=== PATIENT | male | born 1945 | race Caucasian/White ===

== ENCOUNTER → 2016-11-24 | Outpatient (CLI) | payer BC ==
[~2016-11-24] MED LIST: ASPI81TA28 PO; CHOLCAP5 PO; CYAN100020 PO; DUTA0.5C PO; HYDR-5688 PO; LISI20TA55 PO; NAPR1TAB9 PO; SIMV20TA2 PO; TAMS0.4C59 PO; [UNRECOGNIZED DRUG - OTHER] PO
--- NOTE | 2016-11-24 08:02 | DIAGNOSTIC IMAGING REPORT ---
TESTICULAR ULTRASOUND CLINICAL HISTORY: N50.89 Testicular swellingNO LATEX [id number] COMPARISON STUDY: No previous studies for comparison. FINDINGS: The right testis measures 46 x 20 x 30 mm. The left testis measures 47 x 24 x 35 mm. No intratesticular masses are visualized. There is no evidence of testicular torsion. There are small bilateral hydroceles. There are bilateral varicoceles. There is a large reducible fat-containing left inguinal hernia. IMPRESSION: 1. Fat-containing reducible left inguinal hernia 2. No evidence of intratesticular mass. No evidence of testicular torsion 3. Bilateral varicoceles 4. Small bilateral hydroceles Electronically signed by: Calos Gramajo M.D. 11/24/2016 8:00 AM Dictated Date/Time: 11/24/2016 7:58 AM
== END | disposition home or self-care (01) ==
LOC: C.ULTR 07:33
PROVIDERS: ATTEND Urology
DX: N50.89 Other specified disorders of the male genital organs (principal); K40.90 Unilateral inguinal hernia, without obstruction or gangrene, not specified as recurrent; I86.1 Scrotal varices

== ENCOUNTER → 2016-12-23 | Outpatient (CLI) | payer BC ==
[~2016-12-23] MED LIST changes: +OPTIRAY 320 IV PRN
--- NOTE | 2016-12-23 10:06 | DIAGNOSTIC IMAGING REPORT ---
CT ABD/PELVIS IV CONTRAST ONLY CLINICAL HISTORY: Hernia. Varicocele. COMPARISON STUDY: PET/CT dated 01/06/2011 TECHNIQUE: Following the IV administration of 93 mL of Optiray-320, CT scan of the abdomen and pelvis was performed from the lung bases to the proximal femurs. Images are reviewed in the axial, sagittal, and coronal planes. IV contrast was administered without complication. CT DOSE: 420.73 mGy.cm FINDINGS: Lower chest: There are mild basilar atelectatic changes present. Liver: There is a 19 mm hypodensity within the right lobe of the liver, likely representing a cyst. This is slightly larger than on the prior PET/CT scan dated 01/06/2011. There is no ductal dilatation. The portal vein appears patent. Gallbladder: Cholelithiasis Spleen: Normal in size and attenuation. Pancreas: Unremarkable. Adrenal glands: Unremarkable. Kidneys: There is an enlarging 23 mm exophytic mass arising from the upper pole the left kidney. This exceeds water attenuation and is indeterminate. A dedicated renal CT scan is recommended in follow-up. There is no hydronephrosis. Bowel: There are no transition zones to indicate bowel obstruction. By history the appendix is absent. There is no acute diverticulitis. There are scattered colonic diverticula present. Peritoneum: There is no intraperitoneal free air or abdominal ascites. There is small fat-containing umbilical hernia. There is a large fat-containing left inguinal hernia. Vasculature: The abdominal aorta is normal in course and caliber. Adenopathy: None. Pelvic viscera: The bladder, and pelvic viscera are unremarkable. Skeletal structures: There is bilateral L5 spondylolysis. There is a grade 1-2 spondylolisthesis of L5 and S1. IMPRESSION: 1. Large fat-containing left inguinal hernia extending into the superior aspect of the scrotal sac 2. Small fat-containing umbilical hernia 3. No evidence of bowel obstruction. No evidence of free air 4. Enlarging 23 mm exophytic mass arising from the upper pole the left kidney. This is indeterminate as it exceeds water attenuation. A dedicated renal CT scan is recommended in follow-up. Electronically signed by: Calos Gramajo M.D. 12/23/2016 10:04 AM Dictated Date/Time: 12/23/2016 9:58 AM
== END | disposition home or self-care (01) ==
LOC: C.CTS 08:55
PROVIDERS: ATTEND Nurse Practitioner Adult Health
DX: I86.1 Scrotal varices (principal); K40.90 Unilateral inguinal hernia, without obstruction or gangrene, not specified as recurrent; K42.9 Umbilical hernia without obstruction or gangrene; N28.89 Other specified disorders of kidney and ureter

== ENCOUNTER → 2016-12-31 | Outpatient (CLI) | payer BC ==
[~2016-12-31] MED LIST changes: +GADAVIST IV PRN; -OPTIRAY 320 IV PRN
--- NOTE | 2016-12-31 14:56 | DIAGNOSTIC IMAGING REPORT ---
MRI OF THE ABDOMEN WITH AND WITHOUT CONTRAST RENAL PROTOCOL CLINICAL HISTORY: Left kidney mass. COMPARISON STUDY: CT of the abdomen and pelvis December 23, 2010 and December 23, 2016. TECHNIQUE: Utilizing a 1.5 Norma magnet and dedicated coil, multiplanar, multiecho imaging of the abdomen was performed pre and postcontrast administration. Injection of 7 cc of Gadavist IV was uneventful. FINDINGS: Note is made of a T2 hyperintense right hepatic lobe lesion which is consistent with a cyst. Liver morphology is normal. The spleen, adrenal glands and pancreas are normal. The right kidney is unremarkable. Note is made of a 2.2 cm lesion arising from the upper pole of the left kidney which is inherently T1 hyperintense. This demonstrates no enhancement. This is consistent with a hyperdense/proteinaceous cyst. No solid renal lesions are present. There is no hydronephrosis. No abdominal lymphadenopathy or ascites is present. There is a splenule. IMPRESSION: 2.2 cm lesion arising from the upper pole of the left kidney which reflects a complex/proteinaceous cyst and is benign. No solid renal lesion. Electronically signed by: Tobi Cochran M.D. 12/31/2016 2:54 PM Dictated Date/Time: 12/31/2016 9:58 AM
== END | disposition home or self-care (01) ==
LOC: C.MRI 08:03
PROVIDERS: ATTEND Urology
DX: N28.89 Other specified disorders of kidney and ureter (principal)

== ENCOUNTER 2017-01-29 05:08 | Day surgery (SDC) | payer BC ==
[2017-01-14 08:04] VITALS: BMI 25.0
--- NOTE | 2017-01-14 08:42 | PAT Medication Instructions ---
Service Date Jan 14, 2017. Current Home Medication List Aspirin (Aspirin Ec), 81 MG PO OFF FOR COUPLE WEEKS Cholecalciferol (Vitamin D3), 5,000 INTER.UNIT PO QAM Cyanocobalamin (Vitamin B12), 1,000 MCG PO QAM Dutasteride (Avodart), 0.5 MG PO QAM Lisinopril/Hctz (Prinzide 20-25MG), 1 TAB PO QAM Naproxen (Aleve), 220 MG PO BID PRN for Pain Simvastatin (Zocor), 20 MG PO QPM Tamsulosin Hcl (Flomax), 0.4 MG PO BID [Acaiberry], 1 DOSE PO QAM Medication Instructions For Your Scheduled Surgery - Check with surgeon/family doctor for instructions: Aspirin (Aspirin Ec), 81 MG PO QAM - Check with surgeon for instructions: Naproxen (Aleve), 220 MG PO BID PRN for Pain - Hold the following medications starting 01/15/17: [Acaiberry], 1 DOSE PO QAM - Hold the following medications the morning of surgery: Tamsulosin Hcl (Flomax), 0.4 MG PO BID Lisinopril/Hctz (Prinzide 20-25MG), 1 TAB PO QAM Dutasteride (Avodart), 0.5 MG PO QAM Cyanocobalamin (Vitamin B12), 1,000 MCG PO QAM Cholecalciferol (Vitamin D3), 5,000 INTER.UNIT PO QAM - Take the following medications as scheduled the night before surgery: Simvastatin (Zocor), 20 MG PO QPM Tamsulosin Hcl (Flomax), 0.4 MG PO BID If you have any questions please call us at [phone] (Gretchen Matthews PA-C) or [phone] or [phone]
[2017-01-14 09:52] LABS: HEMATOCRIT 47.6 % (42-52); MEAN CORPUSCULAR HEMOGLOBIN 31.9 pg (25-34); MEAN CORPUSCULAR HGB CONC 35.1 g/dl (32-36); MEAN PLATELET VOLUME 10.5 fL (7.4-10.4); PLATELET COUNT 213 K/uL (130-400); RED BLOOD COUNT 5.23 M/uL (4.7-6.1); WHITE BLOOD COUNT 15.97 K/uL (4.8-10.8)
[2017-01-14 10:31] LABS: BUN/CREATININE RATIO 19.3 (10-20); CREATININE 0.88 mg/dl (0.60-1.40); POTASSIUM 3.7 mmol/L (3.5-5.1)
[2017-01-14 10:53] LABS: BASO % 0.2 %; BASO ABS # 0.03 K/uL (0-0.2); COMPLETE YES; EOS % 1.1 %; IG% 0.1 %; LYMPH % 66.8 %; LYMPH ABS # 10.66 K/uL (1.2-3.4); MONO % 4.3 %; NEUT % 27.5 %
[~2017-01-29] VITALS: Ht 175.3 cm; Wt 79.3 kg
[~2017-01-29 05:08] MED LIST changes: -GADAVIST IV PRN; -HYDR-5688 PO
[2017-01-29 05:29] VITALS: BP 159/76; TEMP 36.7; O2SAT 97; Ht 175.3 cm; Wt 79.3 kg
[2017-01-29] MEDS ORDERED: LACTATED RINGER'S 1000ML 1,000 ML IV SCH ×2 (06:00)
[2017-01-29] MEDS ORDERED: CLINDAMYCIN 600 MG/54 ML D5W IV SCH (06:00)
[2017-01-29] MEDS ORDERED: HEPARIN SOD 5000 UNIT/0.5 ML CARP SQ SCH (06:00)
[2017-01-29] MEDS ORDERED: ONDANSETRON INJ 2 MG/ML 2 ML VIAL ONE (06:33)
[2017-01-29] MEDS ORDERED: NEOSTIGMINE METHYLSULFATE 5 MG/5 ML SYR ONE (06:33)
[2017-01-29] MEDS ORDERED: GLYCOPYRROLATE INJ 0.2 MG/ML VIAL ONE (06:33)
[2017-01-29] MEDS ORDERED: PROPOFOL IV EMULSION 10 MG/ML 20 ML VIAL IV ONE (06:33)
[2017-01-29] MEDS ORDERED: ROCURONIUM BROMIDE 10 MG/ML 5 ML VIAL ONE (06:33)
[2017-01-29] MEDS ORDERED: MIDAZOLAM HCL 1 MG/ML 2ML VIAL ONE (06:33)
[2017-01-29] MEDS ORDERED: DEXAMETHASONE SOD INJ 4 MG/ML VIAL ONE (06:33)
[2017-01-29] MEDS ORDERED: LIDOCAINE HCL 2% 2 ML VIAL (20MG/ML) ONE (06:33)
[2017-01-29] MEDS ORDERED: FENTANYL CITRATE INJ 50 MCG/1 ML 2 ML VIAL ONE (06:33)
[2017-01-29] MEDS ORDERED: BUPIVACAINE/EPINEPHRINE 0.5% MPF 1:200,000 30 ML VIAL ONE (06:43)
--- NOTE | 2017-01-29 06:53 | History & Physical Bridge Note ---
H&P Re-Evaluation Bridge Note: I have examined the patient, reviewed the History & Physical and in the interval since the performance of the History & Physical I have noted the following changes of clinical significance: No changes noted
[2017-01-29] MEDS ORDERED: HYDR-5688 PO (06:55)
--- NOTE | 2017-01-29 06:58 | Discharge Instructions ---
Discharge Instructions Date of Service January 29, 2017. Admission Reason for Admission: Left Inguinal Hernia, Umbilical Hernia Discharge Discharge Diagnosis / Problem: Left Inguinal Hernia, Umbilical Hernia Discharge Goals Goal(s): Decrease discomfort, Improve function Activity Recommendations Activity Limitations: as noted below Lifting Limitations: no more than 10 pounds Exercise/Sports Limitations: until after follow-up appointment May Resume Sexual Activity: after follow-up appointment Shower/Bathe: tomorrow . Instructions / Follow-Up Instructions / Follow-Up Please follow-up with Dr. Goodman in the office in 1-2 weeks. Please call the office at [phone] with any questions or concerns. Current Hospital Diet Patient's current hospital diet: Discharge Diet Recommended Diet: Regular Diet Pending Studies Studies pending at discharge: no Medical Emergencies . Who to Call and When: Medical Emergencies: If at any time you feel your situation is an emergency, please call 911 immediately. . Non-Emergent Contact Non-Emergency issues call your: Primary Care Provider, Surgeon Call Non-Emergent contact if: temperature is above 101.5, your pain is not controlled, wound has increased drainage, wound has increased redness . "Provider Documentation" section prepared by Krissy Lezama. . VTE Core Measure Inpt VTE Proph given/why not?: Unfractionated heparin SQ, SCD's [place] Drug Monitoring Program Search Results: patient reviewed within database, no issues identified
[2017-01-29] MEDS ORDERED: PHENYLEPHRINE 100MCG/ML 5ML SYR ONE (07:35)
[2017-01-29] MEDS ORDERED: EpHEDrine SULFATE 50MG/5ML SYR ONE (07:35)
[2017-01-29] MEDS ORDERED: SODIUM CHLORIDE 0.9% 1000ML 1,000 ML IV SCH (08:39)
[2017-01-29] MEDS ORDERED: HYDROCODONE/ACETAMOPHEN 5/325MG TAB PO PRN ×2 (08:45)
[2017-01-29] MEDS ORDERED: ONDANSETRON INJ 2 MG/ML 2 ML VIAL IV PRN ×2 (08:45→09:00)
--- NOTE | 2017-01-29 08:51 | [facility] Operative Report ---
Operative Report Operative Date January 29, 2017. Pre-Operative Diagnosis Umbilical and left inguinal hernia Post-Operative Diagnosis 1. direct and indirect left inguinal hernia; umbilical hernia; cord lipoma Procedure(s) Performed 1. open LIH repair with mesh 2. umbilical hernia repair 3. excision of cord lipoma Surgeon Dr Goodman Back Wedger Surgeon(s) Krissy Lezama PA-C Estimated Blood Loss 20ML Findings 1. large indirect LIH 2. moderate sized direct LIH 3. small umbilical hernia 4. moderate sized cord lipoma Specimens NONE Anesthesia LMA Complication(s) None Disposition Recovery Room / PACU I attest to the content of the Intraoperative Record and any orders documented therein. Any exceptions are noted below.
[2017-01-29] MEDS ORDERED: LABETALOL HCL IV 5 MG/ML 20ML IV PRN (09:00)
[2017-01-29] MEDS ORDERED: HYDROmorphone INJ 1 MG/ML SYR IV PRN (09:00)
[2017-01-29] MEDS ORDERED: FENTANYL CITRATE INJ 50 MCG/1 ML 2 ML VIAL IV PRN (09:00)
[2017-01-29] MEDS ORDERED: MEPERIDINE HCL 25 MG/ML CARP IV PRN (09:00)
[2017-01-29] MEDS ORDERED: EpHEDrine SULFATE INJ 50 MG/ML AMP IV PRN (09:00)
[2017-01-29] MEDS ORDERED: ATROPINE SULFATE 0.1 MG/ML 5ML SYR IV PRN (09:00)
--- NOTE | 2017-01-29 09:15 | OPERATIVE REPORT ---
DATE OF OPERATION: 01/29/2017 PREOPERATIVE DIAGNOSES: 1. Left inguinal hernia. 2. Umbilical hernia. POSTOPERATIVE DIAGNOSES: 1. Large indirect left inguinal hernia. 2. Moderate direct left inguinal hernia. 3. Small umbilical hernia. 4. Moderate size cord lipoma. PROCEDURES: 1. Open left inguinal hernia repair with mesh. 2. Umbilical hernia repair without mesh. 3. Excision of cord lipoma. SURGEON: Dr. Goodman. RANGE AIDE: Krissy Lezama PA-C. ESTIMATED BLOOD LOSS: Approximately 20 mL COMPLICATION: No immediate. ANESTHESIA: General with laryngeal mask airway. DESCRIPTION OF PROCEDURE: After informed consent was obtained, the patient taken to the operating suite and placed in supine position. After successful intubation, the abdomen and groin were shaved and sterilely prepped and draped in usual fashion. We began with the umbilical hernia. I made a small curvilinear infraumbilical incision with a 15 blade scalpel and carried it down through the soft tissue using electrocautery. Once we were down to the fascia, we were able to palpate a small, approximately 1 cm defect. I used a Radha clamp to come around the superior aspect of the umbilicus and took down the umbilical stalk using electrocautery. This allowed me to free up the edges around the defect. Because of its small size, I opted not to use mesh. I used 0 Ethibond in interrupted [id number] fashion to primarily close the small defect. After I did this, I thoroughly irrigated the wound. I reattached the umbilical stalk using 0 Vicryl in an interrupted fashion. Soft tissue was closed using 3-0 Vicryl and skin was closed using 4-0 Monocryl. Dermabond glue was used as a dressing. Marcaine was injected around the area for postoperative analgesia. Our attention then turned to the left inguinal hernia. A new scalpel was used to make an inguinal incision and this was carried down through the soft tissue using electrocautery. The external oblique aponeurosis was skeletonized. A new blade was used to make a small incision and Metzenbaum scissors was used to extend this incision distally down to the external ring as well as for several centimeters proximally. Once in the inguinal canal, we were able to grab the cord and cord structures and gently tease them off the pubic bone using blunt finger dissection. A Werner drain was placed around it to help with exposure. When we did this, we immediately noted a moderate-sized direct defect which was easily reducible. As we began to inspect the cord and cord structures, we noted a moderate size cord lipoma which we easily took down using electrocautery and then clamped the base, cut it, and tied it using 3-0 Vicryl. We were then able to find the cord and cord structures as well as a very large indirect hernia sac. We were able to tease this down to the neck of the hernia sac and then easily dunk this back into the abdominal cavity without any difficulty. We then used a piece of polypropylene rios holed mesh as an onlay. We secured it distally to Warren's ligament, laterally along the shelving portion of Poupart's ligament, and medially along the midline musculature. The "arms" of the mesh were wrapped around behind the cord and cord structures, secured to underlying muscle. The sutures were all 0 Ethibond in interrupted fashion. The mesh laid nice and tension free without impinging on the cord. We thoroughly irrigated the wound, there was adequate hemostasis. We did inject the periphery of the mesh with some Marcaine for postoperative analgesia. Final irrigation was performed. We then closed the external oblique aponeurosis with 2-0 Vicryl in a running fashion. Soft tissue was irrigated and closed using 3-0 Vicryl and 4-0 Monocryl for the skin. Some Marcaine was also injected around the skin. Dermabond glue was used as a dressing. The patient was awakened, extubated, and transferred to recovery in stable condition. I attest to the content of the Intraoperative Record and any orders documented therein. Any exceptio ns are noted below.
--- NOTE | 2017-01-29 09:18 | Anesthesiology Progress Note ---
Anesthesia Post Op Note Date & Time January 29, 2017 at 09:19 Vital Signs Pain Intensity: 0 Vital Signs Past 12 Hours Date Time Temp Pulse Resp B/P Pulse Ox O2 Delivery O2 Flow Rate FiO2 01/29/17 09:10 36.8 125/63 01/29/17 09:08 67 12 01/29/17 09:08 67 12 95 01/29/17 09:05 126/64 01/29/17 09:03 72 16 01/29/17 09:03 73 16 96 01/29/17 09:00 115/63 01/29/17 08:58 70 14 93 01/29/17 08:58 69 14 01/29/17 08:55 112/67 01/29/17 08:53 75 20 01/29/17 08:53 76 20 99 01/29/17 08:52 77 13 01/29/17 08:52 77 13 99 01/29/17 08:50 115/61 01/29/17 08:50 Room Air 01/29/17 08:47 76 14 99 01/29/17 08:47 75 14 01/29/17 08:45 123/64 01/29/17 08:42 81 15 98 01/29/17 08:42 82 15 01/29/17 08:37 36.5 82 14 130/63 98 Mask 10 01/29/17 05:29 36.7 18 159/76 97 Room Air Notes Mental Status: alert / awake / arousable, participated in evaluation Pt Amnestic to Procedure: Yes Nausea / Vomiting: adequately controlled Pain: adequately controlled Airway Patency, RR, SpO2: stable & adequate BP & HR: stable & adequate Hydration State: stable & adequate Anesthetic Complications: no major complications apparent
[2017-01-29 09:35] VITALS: BP 126/62; PULSE 69; TEMP 36.6; O2SAT 95
[2017-01-29 10:05] VITALS: BP 138/66; PULSE 75; TEMP 36.6; O2SAT 95
[2017-01-29 10:35] VITALS: BP 135/66; PULSE 74; TEMP 36.5; O2SAT 95
== END 2017-01-29 10:55 | disposition home or self-care (01) ==
LOC: C.ACU 05:08
PROVIDERS: ATTEND Surgery
DX: K40.90 Unilateral inguinal hernia, without obstruction or gangrene, not specified as recurrent (principal); K42.9 Umbilical hernia without obstruction or gangrene; N40.1 Benign prostatic hyperplasia with lower urinary tract symptoms; N13.8 Other obstructive and reflux uropathy; C91.10 Chronic lymphocytic leukemia of B-cell type not having achieved remission; I10 Essential (primary) hypertension; Z79.82 Long term (current) use of aspirin; Z79.899 Other long term (current) drug therapy

== ENCOUNTER 2020-09-16 10:59 | Inpatient (IN) ==
--- NOTE | 2020-09-16 11:19 | Emergency Department Note ---
Impression & Plan Acute cholecystitis, Cholelithiasis, CLL (chronic lymphocytic leukemia), Dehydration ED Provider Note NAME: TRISTEN JORGENSEN AGE: 75 SEX: M ARRIVES VIA: Walk-In INFORMANT: Patient, ED PROVIDER(S): Jacinto Arnold MD CHIEF COMPLAINT: Abdominal pain PLAN: Disposition: Admit MEDICAL DECISION MAKING: The patient is a pleasant 75-year-old gentleman with a past medical history of CLL and HTN who presents emergency department with several days of right upper abdominal pain that waxes and wanes which he thought was related to his history of reflux but denies any improvement with his Pepcid Complete or Tums. He denies any bloody or black stools or diarrhea. He reports he did have to have a straining bowel movement yesterday and has yet to move his bowels today which he does daily. He denies any fevers, chills, cough, congestion, known COVID-19 exposures. On arrival the patient is in no acute distress, afebrile with stable vital s igns. He appears clinically dry. He has mild right-sided abdominal tenderness without guarding or rebound. Equivocal Jay sign. EKG without overt acute ischemia. Chest x-ray negative for acute c ardiopulmonary process. BBC 17 K, nonspecific. H/H and platelets within normal limits. Chemistry without metabolic acidosis. BUN 19 consistent with the patient's clinically dry appearance. Lactate 1.5, within normal limits. Electrolytes unremarkable. Total bilirubin 1.4 with direct bilirubin 0.3. AST ALT and alk phos within normal limits. Troponin negative. Lipase within normal limits. COVID-19 RNA, NAAT test negative. CT abd/pelvis performed and demonstrates findings c/w cholecystitis with cholelithiasis with gallbladder wall thickening/pericholecystic fluid as well minimal pericholecystic edema. Patient was re-evaluated while he did feel improved after IVF hydration, Famotidine, apap and Compazine - Jay's sign now more clearly present. Patient ordered for Cefoxitin (Zosyn deferred as patient has pcn allergy). Case d/w Dr. Quintanilla, general surgery on-call, who will admit the patient for further management/surgery. Patient was updated and he agrees with plan for admission. Triage Nursing notes reviewed and agree them. Prior medical records reviewed Vital Signs: reviewed and remarkable for no significant abnormalities Differential diagnosis: Appendicitis, testicular torsion, infections, diverticulitis, UTI, obstruction, mesenteric ischemia, aortic pathology, inflammatory bowel disease, renal colic, PUD, pancreatitis, biliary pathology, hernia, volvulus, constipation, as well as other pathologies. ER treatment provided: See below. Diagnostics interpreted by me: ECG: Normal sinus rhythm, 61 bpm, no ectopy, no overt ST elevation or depression, QTC 408, QRS 96. Cardiac Monitoring: An order for continuous cardiac monitoring was placed and demonstrated normal sinus rhythm, 61 bpm, no ectopy. Laboratory studies: See below Imaging studies: XR chest 1V portable CLINICAL HISTORY: Atypical chest pain COMPARISON STUDY: 07/20/2015 FINDINGS: The heart is enlarged. There is aortic tortuosity/ectasia. There are low lung volumes with bibasilar opacities, while likely related to a hypoventilatory study, an infectious/inflammatory processes could appear similar. There is mild central vascular prominence without evidence of overt f ailure IMPRESSION: 1. Cardiomegaly 2. Low lung volumes with hypoventilatory changes at the lung bases. CT abd pelvis IV con only CLINICAL HISTORY: Right sided abd pain COMPARISON STUDY: CT scan dated 12/23/2016 TECHNIQUE: A dose lowering technique was utilized adhering to the principles of ALARA. CT DOSE: 456.85 mGy.cm FINDINGS: Lower chest: There is lower lobe bronchial wall thickening. There are bibasilar opacities, atelectatic versus infectious/inflammatory. The heart is enlarged with coronary artery calcifications Liver: There is trace perihepatic fluid. There is a 28 mm right hepatic lobe cyst. Gallbladder: Cholelithiasis. There is gallbladder wall thickening/pericholecystic edema. The findings may indicate acute cholecystitis. Clinical correlation is advocated. Spleen: Mildly enlarged measuring 13 cm. There is a subtle nonspecific 5 mm hypodensity within the inferior aspect of the spleen. Pancreas: Unremarkable. Adrenal glands: Unremarkable. Kidneys: There is a 28 mm exophytic left renal cyst. This slightly exceeds water attenuation. Prior workup indicated a complex proteinaceous cyst. Bowel: There are no transition zones to indicate bowel obstruction. By history the appendix is surgically absent. There is colonic diverticulosis. There is no evidence of acute diverticulitis. Peritoneum: There is no intraperitoneal free air or abdominal ascites. Vasculature: The abdominal aorta is normal in course and caliber. Adenopathy: None. Pelvic viscera: There is mild prostatomegaly Skeletal structures: There is bilateral L5 spondylolysis. Is a grade 2 spondyl olisthesis of L5 and S1. IMPRESSION: 1. No evidence of bowel obstruction. No evidence of free air 2. Bibasilar opacities, atelectatic versus infectious/inflammatory 3. Cholelithiasis with gallbladder wall thickening/pericholecystic fluid. There is minimal pericholecystic edema. Given the history of right-sided pain, the findings are suspicious for acute cholecystitis. 4. Trace perihepatic fluid. ACT 112: Negative or not required by law. Electronically signed by: Calos Gramajo M.D. 09/16/2020 12:59 PM Consultation(s): Dr. Quintanilla, General surgery. HPI: The patient is a pleasant 75-year-old gentleman with a past medical history of CLL and HTN who presents emergency department with several days of right upper abdominal pain that waxes and wanes which he thought was related to his history of reflux but denies any improvement with his Pepcid Complete or Tums. He denies any bloody or black stools or diarrhea. He reports he did have to have a straining bowel movement yesterday and has yet to move his bowels today which he does daily. He denies any fevers, chills, cough, congestion, known COVID-19 exposures. ROS: See above HPI for pertinent positives & negatives. A total of 10 systems reviewed and were otherwise negative. PAST MEDICAL HISTORY:See Below PAST SURGICAL HISTORY:See Below FAMILY HISTORY:See Below SOCIAL HISTORY:See Below HOME MEDICATIONS:See Below ALLERGIES:See Below VITALS:See Below PHYSICAL EXAMINATION: GENERAL: Awake, alert, uncomfortable-appearing, in no distress HENT: Normocephalic, atraumatic. Oropharynx with dry mucous membranes and otherwise unremarkable. EYES: Normal conjunctiva. Sclera non-icteric. NECK: Supple. No nuchal rigidity. FROM. No JVD. RESPIRATORY: Clear to auscultation. CARDIAC: Regular rate, normal rhythm. Extremities warm and well perfused. Pulses equal. ABDOMEN: Soft, non-distended. Mild right sided abdominal tenderness to palpation . Positive jay's sign. No masses. RECTAL: Deferred. MUSCULOSKELETAL: Chest examination reveals no tenderness. The back is symmetrical on inspection without obvious abnormality. There is no CVA tend erness to palpation. No joint edema. LOWER EXTREMITIES: Calves are equal size bilaterally and non-tender. No edema. No discoloration. NEURO: Normal sensorium. No sensory or motor deficits noted. SKIN: No rash or jaundice noted. Jacinto Arnold MD Past Med/Surg History Medical History Acid reflux CLL (chronic lymphocytic leukemia) DX 30 YR AGO/ANNUAL VISITS DR MALAVE /NO HX TREATMENT Enlarged prostate High cholesterol History of stroke ? HX OF MINI STROKE >10 YR AGO - SCAN SHOWED "SHADOW" - AFFECTED SPEECH/RESOLVED- NO PROBLEMS SINCE HTN (hypertension) Surgical History H/O Achilles tendon repair H/O hernia repair MULTIPLE History of appendectomy History of carpal tunnel release LEFT History of colonoscopy History of left cataract surgery 05/14/2020. 2mg versed no issues. History of removal of cyst PAROTID Family History Father Family history of cancer Other Heart disease Social History Smoking Status: Never smoker Second Hand Exposure: No; Hx Alcohol Use: Yes Hx Substance Use: No Preferred Language: Senegalese Communication Ability: Effective Cemetery Counselor Required: No Beliefs That Will Affect Care: None Current Living Situation: Spouse current occupational status: retired Other Information That Helps Us Care for You: No Feels Safe at Home: Yes Assistive Devices: None Allergies Allergies Allergy/AdvReac Type Severity Reaction Status Date / Time diphenhydramine Allergy Mild RED AND Verified 09/16/20 12:06 SORE RASH WHEN USED THIS CREAM FOR POISION DEAN benzocaine Allergy Unknown RASH Verified 09/16/20 12:06 Penicillins Allergy Unknown REMOTE HX, Verified 09/16/20 12:06 REACTION UNSURE Sulfa (Sulfonamide Allergy Unknown REMOTE HX, Verified 09/16/20 12:06 Antibiotics) REACTION UNSURE Home Meds Home Medications Medication Instructions Recorded Confirmed cholecalciferol (vitamin D3) 125 50 mcg PO QAM 07/20/19 09/16/20 mcg (5,000 unit) capsule lisinopril 20 1 tab PO QAM 07/20/19 09/16/20 mg-hydrochlorothiazide 25 mg tablet mecobalamin (vitamin B12) 1,000 5,000 mcg SUBLINGUAL QAM 07/20/19 09/16/20 mcg disintegrating tablet,sublingual simvastatin 20 mg tablet 20 mg PO HS 07/20/19 09/16/20 Pepcid Complete 1 tab PO UD PRN 05/04/20 09/16/20 dutasteride 0.5 mg PO QAM 05/04/20 09/16/20 ibuprofen 200 mg PO BID PRN 05/04/20 09/16/20 tamsulosin 0.4 mg PO HS 05/04/20 09/16/20 Results & Data (ED) Vital Signs Vital Signs - 24 hr 09/16/20 11:00 09/16/20 11:20 09/16/20 11:24 Temperature 37.1 C Temperature Source Oral Pulse Rate 71 63 Pulse Rate [Apical] 61 Pulse Rate from SpO2 Sensor 63 Pulse Rhythm [Apical] Regular Respiratory Rate 17 16 31 H Respiratory Effort / Characteristics Non-Labored Non-Labored Respiratory Depth Normal Normal Respiratory Pattern Regular Regular Blood Pressure 131/70 126/71 Blood Pressure [Left Arm] 126/71 Blood Pressure Mean 90 94 Blood Pressure Mean [Left Arm] 89 Blood Pressure Position [Left Arm] Lying Pulse Oximetry 94 96 95 Oxygen Delivery Method Room Air Room Air Sepsis Recent Fever Within 48 Hours No Sepsis New/Unexplained Change in Mental Status No Sepsis Action Taken by Nursing No Action Required 09/16/20 11:29 09/16/20 11:30 09/16/20 12:00 Temperature Temperature Source Pulse Rate 62 74 Pulse Rate [Apical] Pulse Rate from SpO2 Sensor 62 71 Pulse Rhythm [Apical] Respiratory Rate 22 31 H Respiratory Effort / Characteristics Respiratory Depth Respiratory Pattern Blood Pressure 132/71 162/83 H Blood Pressure [Left Arm] Blood Pressure Mean 95 113 Blood Pressure Mean [Left Arm] Blood Pressure Position [Left Arm] Pulse Oximetry 95 94 93 Oxygen Delivery Method Room Air Sepsis Recent Fever Within 48 Hours Sepsis New/Unexplained Change in Mental Status Sepsis Action Taken by Nursing 09/16/20 12:40 09/16/20 13:00 Temperature Temperature Source Pulse Rate 84 68 Pulse Rate [Apical] Pulse Rate from SpO2 Sensor 84 69 Pulse Rhythm [Apical] Respiratory Rate 27 H 26 H Respiratory Effort / Characteristics Respiratory Depth Respiratory Pattern Blood Pressure 142/82 H 133/69 Blood Pressure [Left Arm] Blood Pressure Mean 95 100 Blood Pressure Mean [Left Arm] Blood Pressure Position [Left Arm] Pulse Oximetry 94 92 Oxygen Delivery Method Sepsis Recent Fever Within 48 Hours Sepsis New/Unexplained Change in Mental Status Sepsis Action Taken by Nursing Laboratory Data Attestation: I reviewed the patient's lab results. Result diagrams: 09/16/20 11:15 09/16/20 11:51 Lab Results 09/16/20 09/16/20 09/16/20 Range/Units 11:15 11:15 11:15 WBC 17.13 H (4.8-10.8) K/uL RBC 5.54 (4.7-6.1) M/uL Hgb 16.6 (14.0-18.0) g/dL Hct 49.7 (42-52) % MCV 89.7 (80-100) fL MCH 30.0 (25-34) pg MCHC 33.4 (32-36) g/dL RDW Std Deviation 45.9 (36.4-46.3) fL RDW Coeff of Singh 13.9 (11.5-14.5) % Plt Count 222 (130-400) K/uL MPV 10.3 (7.4-10.4) fL Immature Gran % (Auto) 0.2 % Neut % (Auto) 64.0 % Lymph % (Auto) 27.8 % [place] % (Auto) 7.5 % Eos % (Auto) 0.3 % Baso % (Auto) 0.2 % Neut # (Auto) 10.97 H (1.4-6.5) K/uL Lymph # (Auto) 4.76 H (1.2-3.4) K/uL [place] # (Auto) 1.28 H (0.11-0.59) K/uL Eos # (Auto) 0.05 (0-0.5) K/uL Baso # (Auto) 0.03 (0-0.2) K/uL Immature Gran # (Auto) 0.04 H (0.00-0.02) K/uL PT Cancelled INR Cancelled APTT Cancelled PTT Ratio Cancelled Sodium 138 (136-145) mmol/L Potassium (3.5-5.1) mmol/L Chloride 102 (98-107) mmol/L Carbon Dioxide 30 (21-32) mmol/L Anion Gap 6.0 (3-11) BUN 19 H (7-18) mg/dl Creatinine 0.89 (0.6-1.4) mg/dl Est Cr Clr Drug Dosing 71.7 ml/min Est GFR ( Amer) 96.9 Est GFR (Non-Af Amer) 83.6 BUN/Creatinine Ratio 21.5 H (10-20) Glucose 135 H (70-99) mg/dl Calcium 9.4 (8.5-10.1) mg/dl Phosphorus 3.3 (2.5-4.9) mg/dl Magnesium (1.8-2.4) mg/dl Total Bilirubin 1.4 H (0.2-1) mg/dl Direct Bilirubin (0-0.2) mg/dl AST (15-37) U/L ALT 24 (12-78) U/L Alkaline Phosphatase 78 (45-117) U/L Troponin I < 0.015 (0-0.045) ng/ml Total Protein 7.0 (6.4-8.2) gm/dl Albumin 4.1 (3.4-5.0) gm/dl Globulin 2.9 (2.5-4.0) gm/dl Albumin/Globulin Ratio 1.4 (0.9-2) Lipase 113 (73-393) U/L 09/16/20 09/16/20 Range/Units 11:51 11:56 WBC (4.8-10.8) K/uL RBC (4.7-6.1) M/uL Hgb (14.0-18.0) g/dL Hct (42-52) % MCV (80-100) fL MCH (25-34) pg MCHC (32-36) g/dL RDW Std Deviation (36.4-46.3) fL RDW Coeff of Singh (11.5-14.5) % Plt Count (130-400) K/uL MPV (7.4-10.4) fL Immature Gran % (Auto) % Neut % (Auto) % Lymph % (Auto) % [place] % (Auto) % Eos % (Auto) % Baso % (Auto) % Neut # (Auto) (1.4-6.5) K/uL Lymph # (Auto) (1.2-3.4) K/uL [place] # (Auto) (0.11-0.59) K/uL Eos # (Auto) (0-0.5) K/uL Baso # (Auto) (0-0.2) K/uL Immature Gran # (Auto) (0.00-0.02) K/uL PT 11.6 INR 1.1 APTT 27.1 PTT Ratio 1.0 Sodium (136-145) mmol/L Potassium 3.7 (3.5-5.1) mmol/L Chloride (98-107) mmol/L Carbon Dioxide (21-32) mmol/L Anion Gap (3-11) BUN (7-18) mg/dl Creatinine (0.6-1.4) mg/dl Est Cr Clr Drug Dosing ml/min Est GFR ( Amer) Est GFR (Non-Af Amer) BUN/Creatinine Ratio (10-20) Glucose (70-99) mg/dl Calcium (8.5-10.1) mg/dl Phosphorus (2.5-4.9) mg/dl Magnesium 2.0 (1.8-2.4) mg/dl Total Bilirubin (0.2-1) mg/dl Direct Bilirubin 0.3 H (0-0.2) mg/dl AST 17 (15-37) U/L ALT (12-78) U/L Alkaline Phosphatase (45-117) U/L Troponin I (0-0.045) ng/ml Total Protein (6.4-8.2) gm/dl Albumin (3.4-5.0) gm/dl Globulin (2.5-4.0) gm/dl Albumin/Globulin Ratio (0.9-2) Lipase (73-393) U/L Administered Medications Sodium Chloride (Nss 1000ml) 1,000 mls @ 125 mls/hr IV .Q8H FABY Stop: 10/16/20 13:44 Last Infusion: 09/16/20 21:05 Dose: 125 mls/hr Documented by: [id number] Infusion: 09/16/20 19:41 Dose: 0 mls/hr Documented by: [id number] Admin: 09/16/20 15:00 Dose: 125 mls/hr Documented by: [id number] Ampicillin Sodium/Sulbactam Sodium 1,500 mg/ Sodium Chloride 104 mls @ 200 mls/hr IV Q6H [id number]; Protocol Stop: 09/26/20 17:59 Last Infusion: 09/16/20 19:54 Dose: 0 mls/hr Documented by: [id number] Admin: 09/16/20 18:51 Dose: 200 mls/hr Documented by: [id number] Ibuprofen (Ibuprofen 200 Mg Tab) 200 mg PO BID PRN PRN Reason: Pain Stop: 10/16/20 17:32 Last Admin: 09/16/20 18:17 Dose: 200 mg Documented by: [id number] Morphine Sulfate (Morphine Sulfate 2 Mg/Ml Carp) 2 mg IV Q3H PRN PRN Reason: Pain (1,2,3,4,5) & Pre PT Stop: 09/30/20 13:51 Last Admin: 09/16/20 21:06 Dose: 2 mg Documented by: [id number] Simvastatin (Simvastatin 20 Mg Tab) 20 mg PO [facility] Stop: 10/16/20 20:59 Last Admin: 09/16/20 20:46 Dose: 20 mg Documented by: [id number] Tamsulosin HCl (Tamsulosin Hcl 0.4 Mg Cap) 0.4 mg PO [facility] Stop: 10/16/20 20:59 Last Admin: 09/16/20 20:46 Dose: 0.4 mg Documented by: [id number] Discontinued Medications Sodium Chloride (Nss 1000ml) 1,000 mls @ 999 mls/hr IV .Q1H1M ONE Stop: 09/16/20 12:23 Last Infusion: 09/16/20 12:37 Dose: 0 mls/hr Documented by: [id number] Admin: 09/16/20 11:36 Dose: 999 mls/hr Documented by: [id number] Acetaminophen (Ofirmev) 1,000 mg in 100 mls @ 400 mls/hr IV NOW STA Stop: 09/16/20 11:37 Last Infusion: 09/16/20 12:37 Dose: 0 mls/hr Documented by: [id number] Admin: 09/16/20 11:36 Dose: 400 mls/hr Documented by: [id number] Famotidine (Pepcid 20mg Iv Push) 20 mg in 5 mls @ 2.5 mls/min IV NOW STA Stop: 09/16/20 11:24 Last Admin: 09/16/20 11:35 Dose: 2.5 mls/min Documented by: [id number] Cefoxitin Sodium 2,000 mg/ (Dextrose) 60 mls @ 120 mls/hr IV NOW STA Stop: 09/16/20 14:08 Last Infusion: 09/16/20 14:58 Dose: 0 mls/hr Documented by: [id number] Admin: 09/16/20 14:28 Dose: 120 mls/hr Documented by: [id number] Ioversol (Ioversol 100ml) 94 ml IV ONCE ONE Stop: 09/16/20 12:34 Last Admin: 09/16/20 12:33 Dose: 94 ml Documented by: [id number] Metoclopramide HCl (Metoclopramide Hcl Inj 5 Mg/Ml 2 Ml Vial) 10 mg IV NOW STA Stop: 09/16/20 11:22 Last Admin: 09/16/20 11:34 Dose: 10 mg Documented by: [id number] Discharge Plan Visit Data Chief Complaint: Abdominal Pain Stated Complaint: SHARP PAIN ON RT SIDE AND UNDER RIB AREA ED Provider: Jacinto Arnold Discharge Problem: Acute cholecystitis, Cholelithiasis, CLL (chronic lymphocytic leukemia), Dehydration Patient Disposition: Admitted As Inpatient Discharge Instructions Interventions: ED Discharge Assessment Last Done: 09/16/20 16:36 Discharge Problem: Cholelithiasis Qualifiers: Cholelithiasis location: gallbladder Cholecystitis presence: with cholecystitis Cholecystitis acuity: acute Biliary obstruction: without biliary obstruction Qualified Code(s): K80.00 - Calculus of gallbladder with acute cholecystitis without obstruction
[2020-09-16] MEDS ORDERED: METOCLOPRAMIDE HCL INJ 5 MG/ML 2 ML VIAL IV STA (11:21)
[2020-09-16] MEDS ORDERED: SODIUM CHLORIDE 0.9% 1000ML 1,000 ML IV ONE (11:23)
[2020-09-16] MEDS ORDERED: FAMOTIDINE 20MG IV PUSH 20 MG/5 ML SYR IV STA (11:23)
[2020-09-16] MEDS ORDERED: ACETAMINOPHEN 1,000 MG/100 ML VIAL IV STA (11:23)
[2020-09-16 11:34] LABS: Basophils # (auto) 0.03 K/uL (0-0.2); Basophils % (auto) 0.2 %; Eosinophils # (auto) 0.05 K/uL (0-0.5); Eosinophils % (auto) 0.3 %; Hematocrit (blood only) 49.7 % (42-52); Hemoglobin 16.6 g/dL (14.0-18.0); Immature Granulocytes # (auto) 0.04 K/uL (0.00-0.02); Immature Granulocytes % (auto) 0.2 %; Lymphocytes # (auto) 4.76 K/uL (1.2-3.4); Lymphocytes % (auto) 27.8 %; Mean Corpuscular Hgb Conc 33.4 g/dL (32-36); Mean Corpuscular Volume 89.7 fL (80-100); Mean Platelet Volume 10.3 fL (7.4-10.4); Monocytes # (auto) 1.28 K/uL (0.11-0.59); Monocytes % (auto) 7.5 %; Neutrophils # (auto) 10.97 K/uL (1.4-6.5); Platelet Count 222 K/uL (130-400); RDW Coefficient of Variation 13.9 % (11.5-14.5); RDW Standard Deviation 45.9 fL (36.4-46.3); Red Blood Count 5.54 M/uL (4.7-6.1); White Blood Count 17.13 K/uL (4.8-10.8)
[2020-09-16 11:46] LABS: Alanine Aminotransferase 24 U/L (12-78); Albumin Globulin Ratio 1.4 (0.9-2); Albumin Level 4.1 gm/dl (3.4-5.0); Alkaline Phosphatase 78 U/L (45-117); BUN Creatinine Ratio 21.5 (10-20); Bilirubin,Total 1.4 mg/dl (0.2-1); Blood Urea Nitrogen 19 mg/dl (7-18); Calcium 9.4 mg/dl (8.5-10.1); Carbon Dioxide 30 mmol/L (21-32); Chloride 102 mmol/L (98-107); Creatinine Clr Calc Pharmacy 71.7 ml/min; Est GFR (African American) 96.9; Est GFR (Non-African American) 83.6; Globulin 2.9 gm/dl (2.5-4.0); Glucose 135 mg/dl (70-99); Phosphorus 3.3 mg/dl (2.5-4.9); Sodium 138 mmol/L (136-145)
--- NOTE | 2020-09-16 11:48 | XRay Report ---
XR chest 1V portable CLINICAL HISTORY: Atypical chest pain COMPARISON STUDY: 07/20/2015 FINDINGS: The heart is enlarged. There is aortic tortuosity/ectasia. There are low lung volumes with bibasilar opacities, while likely related to a hypoventilatory study, an infectious/inflammatory proc esses could appear similar. There is mild central vascular prominence without evidence of overt failu re IMPRESSION: 1. Cardiomegaly 2. Low lung volumes with hypoventilatory changes at the lung bases. ACT 112: Negative or not required by law. Electronically signed by: Calos Gramajo M.D. 09/16/2020 11:46 AM
[2020-09-16 12:26] LABS: INR 1.1 (0.9-1.1); Partial Thromboplastin Time 27.1 Seconds (21.0-31.0); Prothrombin Time 11.6 Seconds (9.0-12.0)
[2020-09-16 12:28] LABS: Potassium 3.7 mmol/L (3.5-5.1)
[2020-09-16 12:33] LABS: Bilirubin Direct 0.3 mg/dl (0-0.2)
[2020-09-16] MEDS ORDERED: IOVERSOL 100ml IV ONE (12:33)
--- NOTE | 2020-09-16 13:01 | CT Scan Report ---
CT abd pelvis IV con only CLINICAL HISTORY: Right sided abd pain COMPARISON STUDY: CT scan dated 12/23/2016 TECHNIQUE: A dose lowering technique was utilized adhering to the principles of ALARA. CT DOSE: 456.85 mGy.cm FINDINGS: Lower chest: There is lower lobe bronchial wall thickening. There are bibasilar opacities, atelectati c versus infectious/inflammatory. The heart is enlarged with coronary artery calcifications Liver: There is trace perihepatic fluid. There is a 28 mm right hepatic lobe cyst. Gallbladder: Cholelithiasis. There is gallbladder wall thickening/pericholecystic edema. The findings may indicate acute cholecystitis. Clinical correlation is advocated. Spleen: Mildly enlarged measuring 13 cm. There is a subtle nonspecific 5 mm hypodensity within the in ferior aspect of the spleen. Pancreas: Unremarkable. Adrenal glands: Unremarkable. Kidneys: There is a 28 mm exophytic left renal cyst. This slightly exceeds water attenuation. Prior w orkup indicated a complex proteinaceous cyst. Bowel: There are no transition zones to indicate bowel obstruction. By history the appendix is surgic ally absent. There is colonic diverticulosis. There is no evidence of acute diverticulitis. Peritoneum: There is no intraperitoneal free air or abdominal ascites. Vasculature: The abdominal aorta is normal in course and caliber. Adenopathy: None. Pelvic viscera: There is mild prostatomegaly Skeletal structures: There is bilateral L5 spondylolysis. Is a grade 2 spondylolisthesis of L5 and S1 . IMPRESSION: 1. No evidence of bowel obstruction. No evidence of free air 2. Bibasilar opacities, atelectatic versus infectious/inflammatory 3. Cholelithiasis with gallbladder wall thickening/pericholecystic fluid. There is minimal pericholec ystic edema. Given the history of right-sided pain, the findings are suspicious for acute cholecystit is. 4. Trace perihepatic fluid. ACT 112: Negative or not required by law. Electronically signed by: Caols Gramajo M.D. 09/16/2020 12:59 PM
--- NOTE | 2020-09-16 13:09 | Electrocardiogram Report ---
Test Reason : Blood Pressure : / mmHG Vent. Rate : 061 BPM Atrial Rate : 061 BPM P-R Int : 156 ms QRS Dur : 096 ms QT Int : 406 ms P-R-T Axes : -10 -06 -17 degrees QTc Int : 408 ms Poor data quality, interpretation may be adversely affected Normal sinus rhythm Moderate voltage criteria for LVH, may be normal variant Nonspecific ST abnormality Abnormal ECG When compared with ECG of 14-JAN-2017 08:28, T wave inversion now evident in Inferior leads Confirmed by Emmanuel Parks ([id number]) on 09/16/2020 1:09:11 PM Referred By: REFERRED SELF Confirmed By:Emmanuel Parks
[2020-09-16] MEDS ORDERED: cefOXitin 2,000 MG in DEXTROSE 5% 50 ML IV STA (13:39)
[2020-09-16 13:52] LABS: Troponin I < 0.015 ng/ml (0-0.045)
[2020-09-16] MEDS ORDERED: ONDANSETRON INJ 2 MG/ML 2 ML VIAL IV PRN (13:52)
[2020-09-16] MEDS ORDERED: MoRPHine SULFATE 2 MG/ML CARP IV PRN (13:52)
[2020-09-16 13:53] LABS: Lipase 113 U/L (73-393)
[2020-09-16] MEDS: SODIUM CHLORIDE 0.9% 1000ML 1,000 ML IV SCH (15:00)
[2020-09-16] MEDS ORDERED: IBUPROFEN 200 MG TAB PO PRN (17:33)
[2020-09-16] MEDS ORDERED: NON-FORMULARY MEDICATION (Famotidine-Ca Carb-Mag Hydrox [Pepcid Complete] 10-800-165 mg Ta PO PRN (17:33)
[2020-09-16] MEDS: AMPICILLIN/SULBACTAM SOD 1,500 MG in 0.9 % SODIUM CHLORIDE 100 ML IV SCH ×2 (18:51→23:06)
[2020-09-16] MEDS: SIMVASTATIN 20 MG TAB PO SCH (20:46)
[2020-09-16] MEDS: TAMSULOSIN HCL 0.4 MG CAP PO SCH (20:46)
[2020-09-17] MEDS: AVODART: ORDER AWAITING ACTION SCH ×2 (00:01→10:15)
[2020-09-17] MEDS: SODIUM CHLORIDE 0.9% 1000ML 1,000 ML IV SCH ×2 (04:38→18:15)
[2020-09-17] MEDS: AMPICILLIN/SULBACTAM SOD 1,500 MG in 0.9 % SODIUM CHLORIDE 100 ML IV SCH ×3 (06:13→17:29)
--- NOTE | 2020-09-17 07:42 | Ultrasound Report ---
ABDOMINAL ULTRASOUND, RIGHT UPPER QUADRANT HISTORY: Abdomen and pelvis CT 09/16/2020. Right upper quadrant pain. Eval cholecystitis, r/o biliar y ductal dilation. COMPARISON: Abdomen and pelvis CT 09/16/2020. FINDINGS: Pancreas: The pancreatic head and tail are obscured by overlying bowel gas. The remaining portions of the pancreas are within normal limits. Liver: A septated 2.8 cm right hepatic lobe cyst. Gallbladder: There is an 8 mm stone seen at the neck of the gallbladder. There is mild gallbladder wa ll thickening. CBD: 3 mm in diameter. Right kidney: No hydronephrosis. IMPRESSION: An 8 mm stone at the neck of the gallbladder with mild gallbladder wall thickening. Therefore, these findings are concerning for acute cholecystitis. Surgical consultation and/or follow-up nuclear medic ine HIDA scan can be performed for further evaluation. ACT 112: Negative or not required by law. Electronically signed by: Ilia Berger M.D. 09/17/2020 7:41 AM
--- NOTE | 2020-09-17 08:06 | History & Physical Report ---
Date of Service September 17, 2020 Assessment & Plan (1) Acute cholecystitis: This is a 75y M with a PMH of CLL, bilateral open inguinal hernia repairs, and umbilical hernia repair who presents to the [facility] ED on 09/16/20 with complaints of RUQ abdominal pain. The patient has had issues with epigastric discomfort and heartburn over the past few years, but developed worsening symptoms associated with severe RUQ pain that radiates to the back starting yesterday prompting him to come to the ER. A CT a/p showed cholelithiasis with gallbladder wall thickening/pericholecystic fluid. There is minimal pericholecystic edema, and the findings are suspicious for acute cholecystitis. A RUQ US was obtained thereafter that showed an 8 mm stone at the neck of the gallbladder with mild gallbladder wall thickening. Therefore, these findings are concerning for acute cholecystitis. Yesterdays labs revealed a WBC 17, Tbili: 1.4, Dbili: 0.3, AST: 17, ALT: 24, AlkP: 78. Todays blood work is still pending. On examination patients abdomen is mildly distended and he is ttp in the RUQ. Patient has been NPO since midnight and has been receiving IV abx. We will plan to take him to the OR today for a laparoscopic cholecystectomy. Dr. Quintanilla will be by to obtain consent. Covid-19 test is negative. Admission and Anticipated Discharge Date Admission Date: September 16, 2020 History of Present Illness Primary Care Provider: Isaias Lund DO This is a 75y M with a PMH of CLL, bilateral open inguinal hernia repairs, and umbilical hernia repair who presents to the [facility] ED on 09/16/20 with complaints of RUQ abdominal pain. The patient reports that he has dealt with epigastric discomfort and feelings of heartburn off and on over the past few years. He noticed and increase in these symptoms this week that were not relieved by TUMs or antacids. The patient reports taking daily 2 mile walks with his , but he had to cut it short yesterday and go home as he developed >10/10 RUQ pain that radiated towards the back. He states it felt like a knife was in his side and caught every time he took a breath. He reported to the ER for workup of his pain. In the ER patient underwent a CT a/p that revealed cholelithiasis with gallbladder wall thickening/pericholecystic fluid. There is minimal pericholecystic edema and findings suspicious for cholecystitis. WBC 17, Tbili: 1.4. Patient denies any recent fevers/chills, chest pain, shortness of breath, or diarrhea. Reports last BM >1 day ago. He does not notice if the pain is associated with fatty/greasy or spicy foods. The patient was admitted under the surgical service, started on IV abx, and made NPO at midnight. Allergies Allergy/AdvReac Type Severity Reaction Status Date / Time diphenhydramine Allergy Mild RED AND Verified 09/17/20 07:56 SORE RASH WHEN USED THIS CREAM FOR POISION DEAN benzocaine Allergy Unknown RASH Verified 09/17/20 07:56 Penicillins Allergy Unknown REMOTE HX, Verified 09/17/20 07:56 REACTION UNSURE Sulfa (Sulfonamide Allergy Unknown REMOTE HX, Verified 09/17/20 07:56 Antibiotics) REACTION UNSURE Home Medications Medication Instructions Recorded Confirmed Type cholecalciferol (vitamin D3) 125 50 mcg PO QAM 07/20/19 09/16/20 History mcg (5,000 unit) capsule lisinopril 20 1 tab PO QAM 07/20/19 09/16/20 History mg-hydrochlorothiazide 25 mg tablet mecobalamin (vitamin B12) 1,000 5,000 mcg SUBLINGUAL QAM 07/20/19 09/16/20 History mcg disintegrating tablet,sublingual simvastatin 20 mg tablet 20 mg PO HS 07/20/19 09/16/20 History Pepcid Complete 1 tab PO UD PRN 05/04/20 09/16/20 History dutasteride 0.5 mg PO QAM 05/04/20 09/16/20 History ibuprofen 200 mg PO BID PRN 05/04/20 09/16/20 History tamsulosin 0.4 mg PO HS 05/04/20 09/16/20 History oxycodone 5 - 10 mg PO .[id number] PRN #15 tab 09/17/20 Rx Past Med/Surg History Medical History Acid reflux CLL (chronic lymphocytic leukemia) DX 30 YR AGO/ANNUAL VISITS DR MALAVE /NO HX TREATMENT Enlarged prostate High cholesterol History of stroke ? HX OF MINI STROKE >10 YR AGO - SCAN SHOWED "SHADOW" - AFFECTED SPEECH/RESOLVED- NO PROBLEMS SINCE HTN (hypertension) Surgical History H/O Achilles tendon repair H/O hernia repair MULTIPLE History of appendectomy History of carpal tunnel release LEFT History of colonoscopy History of left cataract surgery 05/14/2020. 2mg versed no issues. History of removal of cyst PAROTID Family History Father Family history of cancer Other Heart disease Social History Smoking Status: Never smoker Second Hand Exposure: No; Hx Alcohol Use: Yes Hx Substance Use: No Preferred Language: Divehi Communication Ability: Effective Director Of Quality Required: No Beliefs That Will Affect Care: None Current Living Situation: Spouse current occupational status: retired Other Information That Helps Us Care for You: No Feels Safe at Home: Yes Assistive Devices: None Review of Systems Constitutional: no fever and no chills Respiratory: no dyspnea Cardiovascular: no chest pain Gastrointestinal: + abdominal pain (RUQ and epigastric pain), + belching, + bloating, + heartburn and + constipation (last BM 2 days ago); no nausea and no vomiting Physical Exam Physical Exam: awake/alert Constitutional: well developed, well nourished, cooperative and comfortable; no acute distress ENMT: external ear and nose normal, oropharynx normal Respiratory: normal respiratory effort Gastrointestinal (Abdomen): Inspection/Auscultation: + abdomen distended (mild) and + abdominal surgical scar (umbilical and b/l inguinal hernia scars, well healed) Percussion/Palpation: + abdomen tender (ttp in RUQ) and abdomen soft Results & Data Results & Data ([facility]) Vital Signs (Past 12 Hours) Vital Signs Temp Pulse Resp BP Pulse Ox 09/17/20 07:15 36.6 C 66 16 129/66 93 09/16/20 22:10 36.9 C 60 16 145/[address] abd pelvis IV con only CLINICAL HISTORY: Right sided abd pain COMPARISON STUDY: CT scan dated 12/23/2016 TECHNIQUE: A dose lowering technique was utilized adhering to the principles of ALARA. CT DOSE: 456.85 mGy.cm FINDINGS: Lower chest: There is lower lobe bronchial wall thickening. There are bibasilar opacities, atelectatic versus infectious/inflammatory. The heart is enlarged with coronary artery calcifications Liver: There is trace perihepatic fluid. There is a 28 mm right hepatic lobe cyst. Gallbladder: Cholelithiasis. There is gallbladder wall thickening/pericholecystic edema. The findings may indicate acute cholecystitis. Clinical correlation is advocated. Spleen: Mildly enlarged measuring 13 cm. There is a subtle nonspecific 5 mm hypodensity within the inferior aspect of the spleen. Pancreas: Unremarkable. Adrenal glands: Unremarkable. Kidneys: There is a 28 mm exophytic left renal cyst. This slightly exceeds water attenuation. Prior workup indicated a complex proteinaceous cyst. Bowel: There are no transition zones to indicate bowel obstruction. By history the appendix is surgically absent. There is colonic diverticulosis. There is no evidence of acute diverticulitis. Peritoneum: There is no intraperitoneal free air or abdominal ascites. Vasculature: The abdominal aorta is normal in course and caliber. Adenopathy: None. Pelvic viscera: There is mild prostatomegaly Skeletal structures: There is bilateral L5 spondylolysis. Is a grade 2 spondylolisthesis of L5 and S1. IMPRESSION: 1. No evidence of bowel obstruction. No evidence of free air 2. Bibasilar opacities, atelectatic versus infectious/inflammatory 3. Cholelithiasis with gallbladder wall thickening/pericholecystic fluid. There is minimal pericholecystic edema. Given the history of right-sided pain, the findings are suspicious for acute cholecystitis. 4. Trace perihepatic fluid. ACT 112: Negative or not required by law. Electronically signed by: Calos Gramajo M.D. 09/16/2020 12:59 PM ABDOMINAL ULTRASOUND, RIGHT UPPER QUADRANT HISTORY: Abdomen and pelvis CT 09/16/2020. Right upper quadrant pain. Eval cholecystitis, r/o biliary ductal dilation. COMPARISON: Abdomen and pelvis CT 09/16/2020. FINDINGS: Pancreas: The pancreatic head and tail are obscured by overlying bowel gas. The remaining portions of the pancreas are within normal limits. Liver: A septated 2.8 cm right hepatic lobe cyst. Gallbladder: There is an 8 mm stone seen at the neck of the gallbladder. There is mild gallbladder wall thickening. CBD: 3 mm in diameter. Right kidney: No hydronephrosis. IMPRESSION: An 8 mm stone at the neck of the gallbladder with mild gallbladder wall thickening. Therefore, these findings are concerning for acute cholecystitis. Surgical consultation and/or follow-up nuclear medicine HIDA scan can be performed for further evaluation. ACT 112: Negative or not required by law. Electronically signed by: Ilia Berger M.D. 09/17/2020 7:41 AM Code Status & VTE Plan VTE Prophylaxis Plan VTE Prophylaxis will be ordered: Yes Supervising Physician Co-Signing Physician Notes I personally saw and evaluated the patient with Adelina Medrano PA-C and agree with the assessment and plan. 75 yo male with acute cholecystitis -Admit to surgery service -CT and US images reviewed, consistent with acute cholecystitis -Unasyn -Keep NPO -Plan for laparoscopic cholecystectomy, possible open, possible IOC -Consent obtained, risks discussed including bleeding, infection, bile leak, ductal injury PG Care Time/CCT Total # of Minutes Spent Total Time Spent with Patient: Total time spent is greater than 50% in coordination of care (as documented) at patient's floor/unit and/or counseling patient: Coding Level of Care Code 18474 Initial Inpt Care Lvl 3 Diagnoses Acute cholecystitis K81.0
[2020-09-17 08:09] LABS: Basophils # (auto) 0.01 K/uL (0-0.2); Basophils % (auto) 0.1 %; Eosinophils # (auto) 0.06 K/uL (0-0.5); Eosinophils % (auto) 0.4 %; Hematocrit (blood only) 41.5 % (42-52); Hemoglobin 13.7 g/dL (14.0-18.0); Immature Granulocytes # (auto) 0.05 K/uL (0.00-0.02); Immature Granulocytes % (auto) 0.3 %; Lymphocytes % (auto) 26.7 %; Mean Corpuscular Hemoglobin 29.7 pg (25-34); Mean Corpuscular Volume 89.8 fL (80-100); Mean Platelet Volume 10.2 fL (7.4-10.4); Monocytes % (auto) 7.8 %; Neutrophils # (auto) 9.95 K/uL (1.4-6.5); Neutrophils % (auto) 64.7 %; Platelet Count 182 K/uL (130-400); RDW Coefficient of Variation 14.3 % (11.5-14.5); RDW Standard Deviation 47.3 fL (36.4-46.3); Red Blood Count 4.62 M/uL (4.7-6.1); White Blood Count 15.37 K/uL (4.8-10.8)
--- NOTE | 2020-09-17 08:12 | Anesthesiology Consultation ---
Date of Service September 17, 2020 R shoulde pain L upper extremity parasthesias Assessment & Plan (1) Encounter for pre-operative examination: History Surgery Operation Date: 09/17/20 08:30 Proposed Procedures p Laparoscopic Cholecystectomy, Possible Cholangiogram, Possible Open - Mu Milind Quintanilla, Height/Weight Height: 5 ft 9 in Weight: 77.5 kg Allergies Allergy/AdvReac Type Severity Reaction Status Date / Time diphenhydramine Allergy Mild RED AND Verified 09/17/20 07:56 SORE RASH WHEN USED THIS CREAM FOR POISION DEAN benzocaine Allergy Unknown RASH Verified 09/17/20 07:56 Penicillins Allergy Unknown REMOTE HX, Verified 09/17/20 07:56 REACTION UNSURE Sulfa (Sulfonamide Allergy Unknown REMOTE HX, Verified 09/17/20 07:56 Antibiotics) REACTION UNSURE Medications Home Medications Medication Instructions Recorded Confirmed Last Taken cholecalciferol (vitamin D3) 125 50 mcg PO QAM 07/20/19 09/16/20 09/16/20 mcg (5,000 unit) capsule lisinopril 20 1 tab PO QAM 07/20/19 09/16/20 09/16/20 mg-hydrochlorothiazide 25 mg tablet mecobalamin (vitamin B12) 1,000 5,000 mcg SUBLINGUAL QAM 07/20/19 09/16/20 09/16/20 mcg disintegrating tablet,sublingual simvastatin 20 mg tablet 20 mg PO HS 07/20/19 09/16/20 09/15/20 Pepcid Complete 1 tab PO UD PRN 05/04/20 09/16/20 09/15/20 dutasteride 0.5 mg PO QAM 05/04/20 09/16/20 09/16/20 ibuprofen 200 mg PO BID PRN 05/04/20 09/16/20 09/16/20 07:30 400 mg tamsulosin 0.4 mg PO HS 05/04/20 09/16/20 09/15/20 oxycodone 5 - 10 mg PO .[id number] PRN #15 tab 09/17/20 Unknown Active Medications Generic Name Dose Route Start Last Admin Trade Name Freq PRN Reason Stop Dose Admin Sodium Chloride 1,000 mls @ 125 mls/hr 09/16/20 13:45 09/17/20 04:38 Nss 1000ml IV 10/16/20 13:44 125 mls/hr .Q8H FABY Administration Ampicillin Sodium/Sulbactam 104 mls @ 200 mls/hr 09/16/20 18:00 09/17/20 06:45 Sodium 1,500 mg/ Sodium IV 09/26/20 17:59 Infused Chloride Q6H FABY Infusion Protocol Ibuprofen 200 mg 09/16/20 17:33 09/16/20 18:17 Ibuprofen 200 Mg Tab PO 10/16/20 17:32 200 mg BID PRN Administration Pain Miscellaneous 1 ea 09/17/20 00:00 09/17/20 00:01 Avodart: Order Awaiting Action N/A 10/17/20 00:00 Not Given QS FABY Morphine Sulfate 2 mg 09/16/20 13:52 09/16/20 21:06 Morphine Sulfate 2 Mg/Ml Carp IV 09/30/20 13:51 2 mg Q3H PRN Administration Pain (1,2,3,4,5) & Pre PT Simvastatin 20 mg 09/16/20 21:00 09/16/20 20:46 Simvastatin 20 Mg Tab PO 10/16/20 20:59 20 mg HS FABY Administration Tamsulosin HCl 0.4 mg 09/16/20 21:00 09/16/20 20:46 Tamsulosin Hcl 0.4 Mg Cap PO 10/16/20 20:59 0.4 mg HS FABY Administration NPO Date Last Intake of Fluids: 09/16/20 Time Last Intake of Fluids: 20:00 Date Last Intake of Solids: 09/16/20 Time Last Intake of Solids: 18:00 Past Medical History Medical History Acid reflux CLL (chronic lymphocytic leukemia) DX 30 YR AGO/ANNUAL VISITS DR MALAVE /NO HX TREATMENT Enlarged prostate High cholesterol History of stroke ? HX OF MINI STROKE >10 YR AGO - SCAN SHOWED "SHADOW" - AFFECTED SPEECH/RESOLVED- NO PROBLEMS SINCE HTN (hypertension) Past Family History Family History Father Family history of cancer Other Heart disease Past Surgical History Surgical History H/O Achilles tendon repair H/O hernia repair MULTIPLE History of appendectomy History of carpal tunnel release LEFT History of colonoscopy History of left cataract surgery 05/14/2020. 2mg versed no issues. History of removal of cyst PAROTID Social History Smoking Status: Never smoker Hx Alcohol Use: Yes alcohol intake frequency: holidays/special occasions only Hx Substance Use: No substance use type: does not use Physical Exam Vital Signs Last Vital Signs Temp 37.3 C 09/17/20 07:53 Pulse 72 09/17/20 07:53 Resp 18 09/17/20 07:53 BP 141/81 H 09/17/20 07:53 Pulse Ox 95 09/17/20 07:53 Testing Laboratory Results 09/17/20 07:08 PT 11.6 Seconds (9.0-12.0) 09/16/20 11:56 INR 1.1 (0.9-1.1) 09/16/20 11:56 APTT 27.1 Seconds (21.0-31.0) 09/16/20 11:56 Electrocardiogram Date: 09/16/20 Normal sinus rhythm Moderate voltage criteria for LVH, may be normal variant Nonspecific ST abnormality Abnormal ECG When compared with ECG of 14-JAN-2017 08:28, T wave inversion now evident in Inferior leads Confirmed by Emmanuel Parks ([id number]) on 09/16/2020 1:09:11 PM
[2020-09-17] MEDS ORDERED: BUPIVACAINE/EPINEPHRINE 0.5% MPF 1:200,000 30 ML VIAL ONE (08:28)
[2020-09-17 08:34] LABS: Albumin Globulin Ratio 1.1 (0.9-2); BUN Creatinine Ratio 26.9 (10-20); Bilirubin,Total 1.9 mg/dl (0.2-1); Calcium 8.3 mg/dl (8.5-10.1); Creatinine Clr Calc Pharmacy 92.5 ml/min; Est GFR (African American) 107.6; Est GFR (Non-African American) 92.9; Globulin 2.7 gm/dl (2.5-4.0); Total Protein 5.7 gm/dl (6.4-8.2)
[2020-09-17] MEDS ORDERED: fentaNYL citrate 100 MCG/2 ML VIAL IV PRN (08:35)
[2020-09-17] MEDS ORDERED: ePHEDrine sulfate 50 MG/ML AMP IV PRN (08:35)
[2020-09-17] MEDS ORDERED: ONDANSETRON INJ 2 MG/ML 2 ML VIAL IV PRN (08:35)
[2020-09-17] MEDS ORDERED: ATROPINE SULFATE 0.1 MG/ML 10ML SYR IV PRN (08:35)
--- NOTE | 2020-09-17 10:43 | Post Operative Brief Note ---
PG Immediate Post Op with CF Date of Surgery September 17, 2020 Pre & Post Diagnosis Operation Date: 09/17/20 08:30 Pre-Op Diagnosis: ACUTE CHOLECYSTITIS Post-Op Diagnosis: ACUTE CHOLECYSTITIS with chronic walled off perforation of GB wall I identified the patient and participated in the time-out.: Yes Procedure Operation Date: 09/17/20 08:30 Actual Procedures p Laparoscopic Cholecystectomy(Not Applicable) - Mu Quintanilla DO Surgeon Mu Quintanilla DO Scientific Informatics Project Leader Davin Cotter PA-C Estimated Blood Loss 25 Findings See Below Acutely inflamed, edematous GB with chronic lateral perforation of GB wall Fluids 1000mL Specimens Specimen Description: Permanent specimen: A. Gallbladder and contents Anesthesia Type General Complications none Disposition Disposition: Recovery Room
--- NOTE | 2020-09-17 10:50 | Operative Report ---
PG Post Operative Report Pre & Post Diagnosis Operation Date: 09/17/20 08:30 Pre-Op Diagnosis: ACUTE CHOLECYSTITIS Post-Op Diagnosis: ACUTE CHOLECYSTITIS with chronic walled off perforation of gallbladder wall I identified the patient and participated in the time-out.: Yes Procedure Operation Date: 09/17/20 08:30 Actual Procedures p Laparoscopic Cholecystectomy(Not Applicable) - Mu Quintanilla DO Surgeon Mu Quintanilla DO Forming Yardage Control Operator Davin Cotter PA-C Estimated Blood Loss 25 Findings See Below Acutely inflamed, edematous GB with omental adhesions and chronic appearing perforation of lateral GB wall Fluids 1000mL Specimens Gallbladder to pathology Drains None Anesthesia Type General Complications none Disposition Disposition: Recovery Room Indications 75 yo male with acute cholecystitis Description of Procedure The patient was brought to the operating room and placed in the supine position with both arms extended. At this time He underwent general endotracheal anesthesia without any problems. He was given appropriate pre-operative antibi otics. His abdomen prepped and draped in the usual sterile fashion. A timeout was called, the procedure was verified as Laparoscopic cholecystectomy, possible open, possible intra-operative cholangiogram. Surgical, nursing and anesthesia teams agreed and the procedure was begun. After injection of 0.25% Marcaine with epinephrine, a supraumbilical vertical incision was made and carried down to the fascia using S-retractors. The abdominal wall was then elevated with towel clamps and abdomen entered using the Veress needle confirming position using the saline drop test. Pneumoperitoneum was established. 5mm trocar was placed. Laparoscope was introduced. No injury from entry into the abdomen was visualized after inspection of the abdomen. Three further ports were placed under direct visualization. One 11mm in the subxiphoid region and two 5mm in the RUQ. At this time the abdomen was inspected and the gallbladder identified. There were dense omental adhesions to the gallbladder that were taken down using blunt and sharp dissection. The gallbladder fundus was grasped and retracted cephalad. Immediately upon inspection of the gallbladder, there was a small perforation that was chronic appearing on the lateral portion of the GB about mid-way up the liver. The gallbladder infundibulum was then grasped and retracted laterally. The cystic duct and cystic artery were then identified and skeletonized. The critical view of safety was obtained. The cystic duct was large and transected using an EndoGIA 45mm fernandez stapler load. The cystic artery was clipped twice proximally and once distally and divided using scissors. The gallbladder was then taken off of the liver bed using electrocautery and placed in an endocatch bag and removed from the subxiphoid port. The liver bed was then inspected and no bile leak or bleeding was evident. The trocars were then removed under direct visualization and no bleeding was present. The subxiphoid port was then closed using 0-Vicryl using the suture passer. Abdomen was desufflated. The skin was then closed using 4-0 Monocryl in a subcuticular fashion. Surgical glue was applied. Needle and sponge counts were correct x 2. At this time the patient was awoken from anesthesia and extubated having remained stable throughout the entire case. The patient was then transported to PACU in stable condition. The physician's speech correction assistant was present and scrubbed for the entire case. He was critical in positioning of the patient, prepping and draping, retraction and exposure, driving the laparoscope, closure of the incisions and placement of the dressings. I attest to the content of the Intraoperative Record and any orders documented therein. Any exceptions are noted below.
[2020-09-17] MEDS ORDERED: oxyCODONE/ACETAMINOPHEN 5mg/325mg TAB PO PRN ×2 (11:09)
[2020-09-17] MEDS ORDERED: MoRPHine SULFATE 4 MG/ML 1 ML CARP\\VIAL IV PRN (11:09)
[2020-09-17] MEDS ORDERED: MoRPHine SULFATE 2 MG/ML CARP IV PRN (11:09)
[2020-09-17] MEDS ORDERED: MoRPHine SULFATE 4 MG/ML 1 ML CARP\\VIAL IV STA (11:09)
[2020-09-17] MEDS: CHOLECALCIFEROL 1,000 UNITS 25 MCG TAB PO SCH (11:28)
[2020-09-17] MEDS: LISINOPRIL/HCTZ 20/25MG 1 TAB PO SCH (11:28)
[2020-09-17] MEDS: CYANOCOBALAMIN (VITAMIN B-12) 2,500 MCG TAB.SUBL SL SCH (11:28)
--- NOTE | 2020-09-17 12:37 | Anesthesiology Progress Note ---
Date of Service September 17, 2020 Anesthesia Post Procedure Vital Signs Vital Signs: Temp Pulse Pulse Pulse Resp BP BP 09/17/20 11:46 84 16 135/66 09/17/20 11:20 36.6 C 85 127/57 L 09/17/20 11:00 36.9 C 88 18 125/62 09/17/20 10:50 88 22 122/58 L 09/17/20 10:40 71 20 119/54 L 09/17/20 10:30 77 23 128/55 L 09/17/20 10:24 36.7 C 101 H 20 146/61 H 09/17/20 07:53 37.3 C 72 18 141/81 H 09/17/20 07:15 36.6 C 66 16 129/66 09/16/20 22:10 36.9 C 60 16 145/72 H 09/16/20 17:38 36.9 C 70 18 151/71 H 09/16/20 16:30 73 24 127/71 09/16/20 16:00 64 26 H 122/64 09/16/20 15:30 67 27 H 123/65 09/16/20 15:00 66 21 85/73 L 09/16/20 14:30 65 26 H 115/65 09/16/20 14:28 68 28 H 131/68 09/16/20 13:00 68 26 H 133/69 09/16/20 12:40 84 27 H 142/82 H Pulse Ox 09/17/20 11:46 90 09/17/20 11:20 92 09/17/20 11:00 93 09/17/20 10:50 93 09/17/20 10:40 97 09/17/20 10:30 97 09/17/20 10:24 96 09/17/20 07:53 95 09/17/20 07:15 93 09/16/20 22:10 94 09/16/20 17:38 92 09/16/20 16:30 92 09/16/20 16:00 92 09/16/20 15:30 93 09/16/20 15:00 94 09/16/20 14:30 92 09/16/20 14:28 92 09/16/20 13:00 92 09/16/20 12:40 94 Pain Intensity Right Upper Abdomen: Pain Intensity: 0 Transfer of Care Handoff Completed per policy Notes Mental Status: alert / awake / arousable and participated in evaluation Patient Amnestic to Procedure: Yes Nausea / Vomiting: adequately controlled Pain: adequately controlled Airway Patency, RR, SpO2: stable & adequate BP & HR: stable & adequate Hydration State: stable & adequate Anesthetic Complications: no major complications apparent and Pt Satisfied with anesthetic care
[2020-09-17] MEDS ORDERED: POTASSIUM CHLORIDE CRTAB 20 MEQ TABCR PO STA (14:00)
[2020-09-17] MEDS: TAMSULOSIN HCL 0.4 MG CAP PO SCH (17:28)
[2020-09-17] MEDS: SIMVASTATIN 20 MG TAB PO SCH (21:25)
[2020-09-17] MEDS ORDERED: FAMOTIDINE 20 MG in SYRINGE 3 ML IV STA (22:04)
[2020-09-17] MEDS ORDERED: HYDROCORTISONE SOD 50 MG in SYRINGE 0 ML IV STA (22:06)
--- NOTE | 2020-09-17 22:12 | Communication Note ---
Date of Service: September 17, 2020 Called by RN that pt. developing a rash to appears to be an allergic reaction. The pt. has a noted allergy to PCN and has received received unasyn for cholecystitis. She notes he is hemodynamically stable, without SOB or wheezing. The pt. does report a "scratchy" throat. Rash may be due to abx. allergy and scratchy throat may be due to the same or just a result of endotracheal tube from recetn surgery. As the pt. has an allergy to benadryl, will avoid this medication and provide pepcid for alternate form of histamine blocking. In addition will stop uansyn and change abx. to cipro and flagyl. A one time dose of 50 mg IV hydrocortisone will be ordered. Orders entered in [facility] and verbally discussed with RN. Advised RN to call if pt, develops wheezing, SOB, dyspnea, or appears to be clinically deteriorating.
[2020-09-17] MEDS: metroNIDAZOLE 500 MG/100 ML BAG IV SCH (23:58)
[2020-09-17] MEDS: CIPROFLOXACIN / D5W 400 MG/200 ML BAG IV SCH (23:59)
[2020-09-18] MEDS: metroNIDAZOLE 500 MG/100 ML BAG IV SCH (06:09)
[2020-09-18 07:17] VITALS: BP 156/72; TEMP 98.2; O2SAT 91
[2020-09-18] MEDS: CHOLECALCIFEROL 1,000 UNITS 25 MCG TAB PO SCH (07:54)
[2020-09-18] MEDS: CYANOCOBALAMIN (VITAMIN B-12) 2,500 MCG TAB.SUBL SL SCH (07:54)
[2020-09-18] MEDS: LISINOPRIL/HCTZ 20/25MG 1 TAB PO SCH (07:55)
--- NOTE | 2020-09-18 08:13 | Surgery Progress Note ---
Date of Service September 18, 2020 Assessment & Plan (1) Acute cholecystitis: ok for d/c with velásquez, will remove next week in clinic Admission and Anticipated Discharge Date Admission Date: September 16, 2020 Subjective velásquez placed after several straight cath, has seen Dr. Esparza in the past, tolerating diet, minimal pain Physical Exam Gastrointestinal (Abdomen): Inspection/Auscultation: + abdominal surgical incision (dry dressing); abdomen not distended Percussion/Palpation: abdomen soft Results & Data ([facility]) Vital Signs (Past 12 Hours) Vital Signs Temp Pulse Resp BP Pulse Ox 09/18/20 07:13 36.8 C 67 16 156/72 H 91 09/18/20 03:16 36.6 C 72 17 125/64 93 09/18/20 00:16 149/72 H 09/17/20 23:14 36.7 C 65 18 170/81 H 95 09/17/20 20:35 36.7 C 86 17 147/71 H 93 PG Care Time/CCT Total # of Minutes Spent Total Time Spent with Patient: Total time spent is greater than 50% in coordination of care (as documented) at patient's floor/unit and/or counseling patient: Coding Level of Care Code None Diagnoses Acute cholecystitis K81.0
--- NOTE | 2020-09-18 11:24 | Discharge Summary ---
Date of Service September 18, 2020 Admission HPI Per Admitting Provider This is a 75y M with a PMH of CLL, bilateral open inguinal hernia repairs, and umbilical hernia repair who presents to the [facility] ED on 09/16/20 with complaints of RUQ abdominal pain. The patient reports that he has dealt with epigastric discomfort and feelings of heartburn off and on over the past few years. He noticed and increase in these symptoms this week that were not relieved by TUMs or antacids. The patient reports taking daily 2 mile walks with his , but he had to cut it short yesterday and go home as he developed >10/10 RUQ pain that radiated towards the back. He states it felt like a knife was in his side and caught every time he took a breath. He reported to the ER for workup of his pain. In the ER patient underwent a CT a/p that revealed cholelithiasis with gallbladder wall thickening/pericholecystic fluid. There is minimal pericholecystic edema and findings suspicious for cholecystitis. WBC 17, Tbili: 1.4. Patient denies any recent fevers/chills, chest pain, shortness of breath, or diarrhea. Reports last BM >1 day ago. He does not notice if the pain is associated with fatty/greasy or spicy foods. The patient was admitted under the surgical service, started on IV abx, and made NPO at midnight. Principal Diagnosis 1. Acute cholecystitis 2. Urinary retention Discharge Exam Gastrointestinal (Abdomen) Inspection/Auscultation: + abdominal surgical incision (dry); abdomen not distended Percussion/Palpation: abdomen soft Skin no rashes, warm and dry Discharge Data Allergies Allergy/AdvReac Type Severity Reaction Status Date / Time diphenhydramine Allergy Mild RED AND Verified 09/17/20 07:56 SORE RASH WHEN USED THIS CREAM FOR POISION DEAN benzocaine Allergy Unknown RASH Verified 09/17/20 07:56 Penicillins Allergy Unknown REMOTE HX, Verified 09/17/20 07:56 REACTION UNSURE Sulfa (Sulfonamide Allergy Unknown REMOTE HX, Verified 09/17/20 07:56 Antibiotics) REACTION UNSURE ampicillin [From Unasyn] Allergy Rash Verified 09/18/20 00:40 sulbactam [From Unasyn] Allergy Rash Verified 09/18/20 00:40 Consultations 09/16/20 13:43 ED Decision to Admit Stat Procedures Performed Operation Date: 09/17/20 08:30 Actual Procedures p Laparoscopic Cholecystectomy(Not Applicable) - Mu Quintanilla DO Ordered Studies 09/16/20 11:24 CT abd pelvis IV con only Stat 09/16/20 14:03 US abdomen limited Urgent Hospital Course (1) Acute cholecystitis: 75 y/o presented to the ER with RUQ abdominal pain. White count was 17,[address] was consistent with acute cholecystitis. He was admitted to the surgical service and taken to was taken to the operating room in the morning for laparoscopic cholecystectomy. He was returned to the surgical floor and was doing well although developed some post-op urinary retention. After two straight caths a velásquez was placed. He also developed a rash possibly from Unasyn overnight which was changed to Cipro and Flagyl. In the morning he was able to advance diet and tolerate oral analgesics. Rash had resolved. He was stable for discharge home with velásquez to be removed in the urology clinic next week. Total Time Total Time Spent Total Time Spent (In Minutes): 15 Discharge Plan Discharge Items Patient Disposition: Home - Self-Care Reason For Visit: ACUTE CHOLECYSTITIS Discharge Diagnosis: laparoscopic cholecystectomy Activity: Per Instructions section Lifting: No more than 10 pounds Bathing Comment: may shower starting 09/18/20; no soaking in tubs/pools Exercise/Sports: Wait until after follow-up appointment Driving/Machine Use: do not resume driving while taking narcotics for pain Non-emergency contact: Surgeon Call non-emergency contact if: you have any medication questions, your symptoms worsen, your pain is not controlled, your pain is worsening, your pain is concerning for you, you have a fever, your temperature is above 101.5, your wound has increased redness, your wound has increased drainage and your wound pain has increased Follow-up/Referrals: Guanaco Malhotra MD [Physician] - (Dr. Malhotra's office will contact you for an appt next week to have the catheter removed) Mu Quintanilla DO [Physician] - 10/02/20 9:30 am (Please call to schedule follow up in clinic within 2 weeks) Isaias Lund DO [Primary Care Provider] - Diet: Regular Addtl Attending Provider Instructions: You may purchase Tylenol and or Ibuprofen over the counter if needed for additional pain control - Tylenol 650mg orally every 4-6 hours, as needed for pain. Do not exceed more than 3 grams of Acetaminophen within a 24 hour time period. - Ibuprofen 200mg-400mg orally every 6-8 hours, as needed for pain. Take with food You have small white bandages over your incisions called steri-strips. Please keep these in place and you may shower with these on. They will tend to fall off on their own within 7-10 days. Pending Studies at Discharge: Yes Studies:: surgical pathology Stand-Alone Forms: [facility] [employer], Smoking Cessation Medications and DC Order Prescriptions: New oxycodone 5 mg tablet 5 - 10 mg PO .[id number] PRN (Reason: pain, for initial therapy, max 6 tabs per day) Qty: 15 RF: 0 ciprofloxacin HCl 500 mg tablet 500 mg PO BID 7 Days Qty: 14 RF: 0 metronidazole [Flagyl] 500 mg tablet 500 mg PO TID Qty: 20 RF: 0 Continued simvastatin 20 mg tablet 20 mg PO HS RF: 0 lisinopril-hydrochlorothiazide 20-25 mg tablet 1 tab PO QAM RF: 0 mecobalamin (vitamin B12) 1,000 mcg tablet,disintegrating 5,000 mcg sublingual QAM RF: 0 cholecalciferol (vitamin D3) 5,000 unit capsule 50 mcg PO QAM RF: 0 ibuprofen 200 mg Capsule 200 mg PO BID PRN (Reason: Pain) RF: 0 tamsulosin 0.4 mg capsule 0.4 mg PO HS RF: 0 dutasteride 0.5 mg capsule 0.5 mg PO QAM RF: 0 Pepcid Complete 10-800-165 mg Tablet,Chewable 1 tab PO UD PRN (Reason: Acid Reflux) RF: 0 Discharge Orders: Discharge Order (Routine); Ordered 09/17/20 Ordered By: Ki Cotter Jr Admission Data Admit Date/Time: 09/16/20 13:52 Attending Provider: Mu Quintanilla Admit Provider: Mu Quintanilla Primary Care Provider: Isaias Lund Other Providers: Mu Quintanilla Coding Level of Care Code D/C Day Management <30 mins Diagnoses Acute cholecystitis K81.0
[2020-09-18 12:22] VITALS: PULSE 88
[2020-09-18] MEDS: CIPROFLOXACIN / D5W 400 MG/200 ML BAG IV SCH (12:38)
== END 2020-09-18 13:49 | disposition home or self-care (01) | DRG 418 ==
LOC: ED 10:59 → 3W 13:52